=== PATIENT | female | born 1980 | race Caucasian/White ===

== ENCOUNTER 2018-10-21 07:22 | Emergency (ER) | payer OTHER, SELFPAY ==
[2018-10-21 07:24] VITALS: BP 114/73; PULSE 98; RESP 16; TEMP 36.6; O2SAT 99; BMI 25.9
--- NOTE | 2018-10-21 07:38 | ED.DCSUM_ITS ---
- ER Visit Summary Date of Service: 10/21/18 Chief Complaint: Nausea vomiting History of Present Illness: The patient is a 37 F who presents with nausea and vomiting that began today. Patient states she was drinking alcohol last night and developed nausea vomiting today. Patient states she is vomiting up yellow stomach contents. Patient denies any hematemesis or coffee-ground emesis. Patient denies any diarrhea, melena, or hematochezia. Patient admits to some mild diffuse abdominal pain that is worse after vomiting. Patient denies any radiation of the pain into her back or chest. Patient denies any urinary complaints. Patient denies any abnormal vaginal bleeding or discharge. Physical Examination: Vital signs are stable. Patient is afebrile. Patient is in no acute distress. Oral mucosa is pink and moist. Neck is supple. Trachea is midline. There is no JVD noted. Heart was regular rate and rhythm. Lungs are clear and equal bilaterally. Abdomen is soft. Bowel sounds are normal. There is no tenderness. There is no guarding or rebound noted. Cranial nerves II through XII are intact. There are no focal motor or sensory deficits noted. Emergency Department Course and Treatment: Patient was given IV fluids and Zofran here. Patient had no further episodes of vomiting. Patient was instructed to drink small amounts of fluids more frequently and advance her diet as tolerated. Patient was instructed to follow-up with her primary care physician in 5 to 7 days. Patient understood and was agreeable with the plan. All questions were answered. Disposition: Discharge home Impression: Nausea and vomiting This note was generated with [employer] dictation software. It may contain incorrect words, spelling, and punctuation that were not noted in review of the chart prior to signing ED Disposition - Plan for ED Patient: Disposition: Home or Assisted Living Diagnosis: Nausea and vomiting Instructions: ED Nausea Vomiting Referrals: Aris Acosta MD [STAFF PHYSICIAN] - 5-7 Days
[2018-10-21] MEDS: Ondansetron 4 MG/2 ML Vial IV (07:57)
[2018-10-21] MEDS: 0.9% Normal Saline 1,000 ML 1000 ML IV (07:57)
[2018-10-21 09:42] VITALS: BP 120/64; PULSE 72; RESP 16; O2SAT 98
== END 2018-10-21 09:44 | disposition home or self-care (01) ==
PROVIDERS: Emergency Provider Emergency Medicine
DX: R11.2 Nausea with vomiting, unspecified (principal); R10.9 Unspecified abdominal pain; M54.9 Dorsalgia, unspecified; G89.29 Other chronic pain; F17.210 Nicotine dependence, cigarettes, uncomplicated
CPT/HCPCS: 96361; 96374; 99283; J7030; A4216; J2405

== ENCOUNTER 2019-05-29 19:11 | Emergency (ER) | payer OTHER, SELFPAY ==
[2019-05-29 19:12] VITALS: BP 125/106; PULSE 99; RESP 18; TEMP 37.2; O2SAT 99; BMI 22.1
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
[2019-05-29] MEDS: HYDROcodone Bitartrate/Apap 5/325 Tablet PO (21:06)
== END 2019-05-29 21:10 | disposition home or self-care (01) ==
PROVIDERS: Emergency Provider Emergency Medicine
DX: S16.1XXA Strain of muscle, fascia and tendon at neck level, initial encounter (principal); V89.2XXA Person injured in unspecified motor-vehicle accident, traffic, initial encounter; Y93.9 Activity, unspecified; Y92.410 Unspecified street and highway as the place of occurrence of the external cause; Y99.9 Unspecified external cause status; M51.36 Other intervertebral disc degeneration, lumbar region; G89.29 Other chronic pain; F17.200 Nicotine dependence, unspecified, uncomplicated
CPT/HCPCS: 99283

== ENCOUNTER 2022-01-11 22:54 | Emergency (ER) | payer MEDICAID, SELFPAY ==
[2022-01-11 22:55] VITALS: BP 152/96; PULSE 118; RESP 18; TEMP 36.6; O2SAT 100; BMI 28.1
--- NOTE | 2022-01-11 23:08 | ED.VIS.BACK ---
HPI History of Present Illness Chief Complaint: Back Informant: patient Onset/Context/Timing Onset: Today Context: Sudden Onset Timing: Continuous Quality: Sharp and Burning Location: Lumbar and Right Leg Worsened by: improves with - (Sitting) Relieved by: Remaining Still (And laying flat) Associated Symptoms Associated Symptoms: Numbness, Tingling and Radiation to Right Leg; Negative for Radiation to Left Leg, Fever, Abdominal Pain, Dysuria, Unable to Ambulate, Unable to Transfer, Urinary Retention, Urinary Incontinence, Constipation or Fecal Incontinence Narrative Narrative: Patient presents with back pain that began today. 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 Patient states her pain is sharp and burning. Patient states her pain radiates down her right leg to her foot. Patient states her pain has been constant. Patient states it is better whenever she lays down and worse whenever she sits up. Patient does admit to some numbness and tingling down her right leg. Patient denies any bowel or bladder changes. Patient denies any saddle anesthesia. Patient states she had a microdiscectomy done in August of this year. Prior similar symptoms: With Prior Back Pain PFSH PFSH Home Medications cyclobenzaprine 10 mg tablet 1 tab PO DAILY PRN PRN Pain 09/27/16 [History Last Taken 10/19/18] hydrocodone 7.5 mg-acetaminophen 325 mg tablet 1 ea PO TID PRN PRN Pain 09/27/16 [History Last Taken 10/19/18] naproxen 500 mg tablet 500 mg PO BID #14 tabs 05/29/19 [Rx Last Taken Unknown] prednisone 20 mg tablet 60 mg PO DAILY #15 TABLETS 01/12/22 [Rx Last Taken Unknown] Allergy/AdvReac Type Severity Reaction Status Date / Time No Known Allergies Allergy Verified 01/11/22 22:58 Surgical History (Updated 01/11/22 @ 23:[address] Deejay Koenig DO) S/P lumbar microdiscectomy Social History Smoking Status: Current every day smoker ROS ROS ED Constitutional Constitutional ED: Denies chills or fever(s) Eyes Eyes: Denies blurry vision or change in vision ENT ENT ED: Denies rhinorrhea or sore throat Cardiovascular Cardiovascular: Denies chest pain or palpitations Respiratory/Chest Respiratory/Chest: Denies cough or dyspnea Gastrointestinal Gastrointestinal: Reports nausea; Denies vomiting Genitourinary Genitourinary ED: Denies dysuria or hematuria Musculoskeletal Musculoskeletal: Reports back pain; Denies neck pain Integumentary Denies abscess or rash Neurologic Neurologic: Denies headache(s) or weakness Allergic/Immunologic Allergic/Immunologic ED: Denies mouth swelling or urticaria EXAM Physical Exam Const Vital Signs: 01/11/22 22:55 Temperature 97.8 F Temperature Source Temporal Pulse Rate 118 H Respiratory Rate 18 Blood Pressure 152/96 H Blood Pressure Mean 114 Pulse Ox 100 Oxygen Delivery Method Room Air Positive well nourished and well developed General Appearance ED: well developed and NAD HEENT Reports moist mucous membranes Back/Spine normal to inspection Back/Spine Narrative: There is tenderness to palpation over the right lower lumbar paraspinal muscles. There is some mild midline tenderness. There is no bony crepitance or step-off. Range of motion was limited in all motions of the lumbar spine secondary to pain. Straight leg raises were negative bilaterally. Strength is 5/5 bilaterally in the lower extremities. Sensation was slightly diminished to light touch over the lateral aspect of the right lower leg. Deep tendon reflexes were 2/4 bilaterally in the lower extremities. Lumbar Spine / Lower Back: ROM limited and straight leg raise negative bilaterally Extremity normal to inspection General Extremety ED: Negative for edema or tenderness General Extremity: Negative for edema Neuro oriented x3 Sensorium / Orientation: alert Motor Exam: strength 5/5 throughout Deep Tendon Reflexes: Rt Patellar (L4): 2+, Lt Patellar (L4): 2+, Rt Ankle (S1): 2+ and Lt Ankle (S1): 2+ Deep Tendon Reflexes Back: Rt Patellar (L4): 2+, Lt Patellar (L4): 2+, Rt Ankle (S1): 2+ and Lt Ankle (S1): 2+ Psych mental status grossly normal Skin no rashes or lesions noted MDM MDM MDM Narrative Medical decision making narrative: Patient is given injection of morphine and Norflex here. X-rays of the lumbar spine were obtained. There are 3 views. On my interpretation, there is no acute fracture or spondylolisthesis. Radiologist also interpreted the x-rays and agrees. Patient is feeling better on reevaluation. Patient was advised of her findings. Patient was given a dose of prednisone here. Patient was given a prescription for prednisone. Patient was instructed to follow-up with her pain management physician in 3 to 5 days for further evaluation and management of her pain. Patient understood and was agreeable with the plan. All questions were answered. Radiography Diagnostic Testing: Clinical Impression(s) from Imaging Studies Lumbar Spine X-Ray 01/11/22 23:13 IMPRESSION: No acute osseous abnormality. Electronically Signed: Sergei Morgan MD at 23:45 EDT Reading Location ID and State: [address] [place] [address] Tel , Service support , Discharge Plan Triage Chief Complaint: Back ED Provider: Deejay Koenig Dx/Rx/DC Orders Clinical Impression: Acute low back pain with sciatica, Degenerative disc disease, lumbar Instructions: ED Back Pain (Acute or Chronic) Prescriptions: New prednisone 20 MG tablet 60 mg PO DAILY Qty: 15 0RF No Action cyclobenzaprine 10 MG tablet 1 tab PO DAILY PRN PRN (Reason: Pain) Label Comments: hydrocodone-acetaminophen 1 TABLET tablet 1 ea PO TID PRN PRN (Reason: Pain) naproxen 500 MG tablet 500 mg PO BID Qty: 14 0RF Primary Care Provider: Care Physician,No Primary Referrals: Handy Delaney MD [Med Staff - Active Staff] - 5-7 Days Care Physician,No Primary [Primary Care Provider] - Disposition Disposition: Home, Self Care
--- NOTE | 2022-01-11 23:13 | RAD_ITS ---
STUDY: X-RAY - LUMBAR SPINE REASON FOR EXAM: Female, 41 years old. Status post microdiscectomy L5-S1 on 09/16/2021. Back pain and pain radiating down right leg after bending over to chicken picker an object. TECHNIQUE: 3 view(s) of the lumbar spine were obtained. COMPARISON: 09/28/2016 lumbar spine radiographs. FINDINGS: No visible fracture. No osseous destruction. Alignment anatomic. No significant degenerative changes. Soft tissues unremarkable. RAD/Lumbar Spine 2 or 3 Views IMPRESSION: No acute osseous abnormality. Electronically Signed: Sergei Morgan MD at 23:45 EDT Reading Location ID and State: [address] [place] [address] Tel , Service support ,
[2022-01-11] MEDS: Morphine 4 MG/ML Syringe IM (23:24)
[2022-01-11] MEDS: Orphenadrine 60 MG/2 ML Ampul IM (23:24)
[2022-01-12] MEDS: predniSONE 20 MG Tablet 60 MG PO (00:30)
== END 2022-01-12 00:33 | disposition home or self-care (01) ==
PROVIDERS: Emergency Provider Emergency Medicine; Visit Provider Emergency Medicine
DX: M54.50 Low back pain, unspecified (principal); M51.16 Intervertebral disc disorders with radiculopathy, lumbar region; F17.200 Nicotine dependence, unspecified, uncomplicated
CPT/HCPCS: 72100; 99283

== ENCOUNTER 2022-01-28 17:30 | Outpatient (RCR) | payer MEDICAID, SELFPAY ==
--- NOTE | 2021-12-09 17:19 | HP.PTREVAL ---
Dr. Mateus Sheldon, DO, It has been my pleasure to treat ESTEVAN GARCIA over the last 13 visits for LDD, DDD, s/p microdiscectomy 09/17. Please see the progress note below for an update on the physical therapy plan of care! Subjective: Since last recheck has been on a roller coaster. Pain got real bad in back pain for a bit. Met with doctor yesterday for 6 week f/u and says it is probably scar tissue messing with her nerves. Tingling in L LE persists. Pain in LB has been intermittent up to 7/10 average and worse with sitting or standing too long. Walking feels better. Walks daily(noncompliant for a while) about a mile. Doing no exercises. Activitiy can be interrupted if painful, avoids scooping cat box. Tinlgin in leg is constant but sometimes worse. Sleep is not great as it takes a while to fall asleep. Up every hour last night. Doctor gave her gabapentin for night. Objective/Function: 3/5 core strefngth back and abs. AROM L/S WFLexcept extension which is mod limited but very hesitant to move admitting there is no increased pain or tightness but still hesitant. Walks slow but without deficit. Toe and heel walk easily. Steps reciprocal but slow. Goals still appropriate fro 4 weeks of pool therapy with questionable prognosis. Plan Plan: 2x/week for 4 weeks for aquatic therapy if doctor will write the order. Focus on LB ROM, HS stretch and LE adn core strength, movement confidence. Pt to call for order adn will schedule once it is in, paperwork filled out. Balance/Gait/Functional tests - Balance/Special Test Scores Oswestry Low Back Score: 26 Goals Goal 1:: Full LB AROM without painn or hesitation Goal Time Frame: 4-6 Weeks Goal Progress: Progressing Goal 2:: pt feel R leg pain and LBP 75% better to 2/10 at worst and intermittent Goal Time Frame: 4-6 Weeks Goal Progress: Not Progressing Goal 3:: oswestry 10 or less Goal Time Frame: 4-6 Weeks Goal Progress: Not Progressing Goal 4:: I appropr HEP to manage condition Goal Time Frame: 4-6 Weeks Goal Progress: noncompliant. Anticipated Interventions Patient/Client Instruction: Educate patient on: Condition, Plan of Care For the Purpose of:: To decrease pain, To increase ROM, To improve muscle performance and motor function, To increase tolerance to activity/condition/position Therapeutic Exercise to Include: Strength training, Postural training, Flexibilty training, Passive ROM, Active ROM, Dynamic Lumbar Stabilization For the Purpose of:: To decrease pain, To increase ROM, To improve muscle performance and motor function, To improve ability of physical actions for home/community/work/leisure Manual Therapy Techniques to Include: Mobilization, Soft tissue mobilization For the Purpose of:: To increase ROM TENS: Yes Cryotherapy (ice pack, ice massage): Yes For the Purpose of:: To decrease pain Please do not hesitate to contact me at [phone] by phone or if you have questions or concerns regarding this new plan of care! Sincerely, Deejay Maldonado, DPT, OCS, CSCS
--- NOTE | 2022-01-28 17:52 | HP.PTDCSUM ---
It has been my pleasure to treat ESTEVAN GARCIA referred by Dr. Mateus Sheldon DO, with the diagnosis of LDD, DDD, s/p microdiscectomy 09/17 for a total of 20 visit(s). Discharge Date: 01/28/22 Please see the following information for a summary of their discharge status. Subjective: has been in the pool but it was not helping much. Got some nerve pain in R leg. R leg has been numb after the popping incident. Currently still gets numb and pain is getting less intense. This week is 6/10 constant in bottom of foot , inside R foot up into calf and HS and R LB. LB portion is intermittent. Worse with standing and walking or sitting too long. R leg gives out at times but she catches herself and moves on. doing stretches at home, see doctor next Tuesday. R leg and LBP Pain Intensity (Out of 10): 6 RLE Pain Intensity (Out of 10): 6 % Improvement: 0 Objective/Function: needs arms to stand from chair. Started on Lyrica. LB extension mod limited and symptomatic. LB flexion moderately limited with R leg pain and LBP. R SB and L SB min limited. trasnfers and gait slow and hesitant R LE. Steps slow and reciprocal with one rail. Strength weaker r side knee ext/flexion but DF and hip flexion are symmetrical. + R SLR. Goal 1:: Full LB AROM without painn or hesitation Goal Progress: Not Progressing Goal 2:: pt feel R leg pain and LBP 75% better to 2/10 at worst and intermittent Goal Progress: Not Progressing Goal 3:: oswestry 10 or less Goal Progress: Not Progressing Goal 4:: I appropr HEP to manage condition Goal Progress: just stretches. Plan: d/c , Pt to f/u with doctor. Discharge Comments: back to doctor for next step due to nonimprovement. If there are questions or concerns regarding this patient's physical therapy, please feel free to call me at [phone]. Thank you for the referral of this patient. Sincerely, Deejay Maldonado, DPT, OCS, CSCS Balance/Gait/Functional tests - Balance/Special Test Scores Oswestry Low Back Score: 29
== END 2022-01-28 19:00 | disposition home or self-care (01) ==
LOC: PT 17:30
PROVIDERS: Referring Provider Orthopaedic Surgery Orthopaedic Surgery of the Spine; Visit Provider Orthopaedic Surgery Orthopaedic Surgery of the Spine
DX: Z47.89 Encounter for other orthopedic aftercare; M51.26 Other intervertebral disc displacement, lumbar region; M51.36 Other intervertebral disc degeneration, lumbar region
CPT/HCPCS: 97014; 97110; 97113; 97162; 97164; 97530; G0283

== ENCOUNTER → 2022-02-12 | Outpatient (CLI) | payer MEDICAID, SELFPAY ==
--- NOTE | 2022-02-12 17:04 | MRI_ITS ---
STUDY: MRI LUMBAR SPINE WITH AND WITHOUT CONTRAST REASON FOR EXAM: Female, 41 years old. LUMBAR DISC DISPLACEMENT TECHNIQUE: Standardized fat and water weighted pulse sequences were obtained in the sagittal and axial planes. IV CLARISCAN 13mL was administered for the contrast portion of the examination. COMPARISON: 09/12/2014. FINDINGS: . No demonstrated fracture. Vertebral bodies are normal in height. T12-L1: Normal disc height and morphology. Normal bilateral facet joints. Normal central canal. Normal bilateral lateral recesses. Normal intervertebral neural foramina. L1-2: Normal disc height and morphology. Normal bilateral facet joints. Normal central canal. Normal bilateral lateral recesses. Normal intervertebral neural foramina. L2-3: Disc dehydration. Small, central, noncompressive disc protrusion. Normal bilateral facet joints. Normal central canal. Normal bilateral lateral recesses. Normal intervertebral neural foramina. L3-4: Disc dehydration. Small, central, noncompressive disc protrusion causes mild effacement of the ventral thecal sac. No canal stenosis. Normal bilateral facet joints. Normal central canal. Normal bilateral lateral recesses. Normal intervertebral neural foramina. L4-5: Disc dehydration. Small, central, noncompressive disc protrusion. Normal bilateral facet joints. Normal central canal. Normal bilateral lateral recesses. Normal intervertebral neural foramina. L5-S1: Normal disc height. L5 Schmorl''s node. Normal bilateral facet joints. Normal central canal. Normal bilateral lateral recesses. Normal intervertebral neural foramina. Normal visualized sacral ala. No enhancing lesion. Normal visualized paraspinous soft tissue structures. MRI/Spine Lumbar W/WO Contrast IMPRESSION: Noncompressive disc protrusions at L2-3, L3-4, and L4-5. No canal or foraminal stenosis. Electronically Signed: Maira Gruber MD at 23:39 EDT Reading Location ID and State: [id number] / Tel , Service support ,
== END | disposition home or self-care (01) ==
LOC: MRI 16:58
PROVIDERS: Visit Provider Orthopaedic Surgery Orthopaedic Surgery of the Spine
DX: M51.26 Other intervertebral disc displacement, lumbar region (principal)
CPT/HCPCS: 72158; A9575